=== PATIENT | female | born 1975 | race Caucasian/White ===

== ENCOUNTER 2017-12-11 20:32 | Emergency (ER) | payer OTHER ==
[~2017-12-11] VITALS: Ht 165.1 cm; Wt 100.0 kg
[~2017-12-11 20:32] MED LIST: ADDE30TA PO; ALPR-138 PO; KLON2TAB PO; TRAZ300T2 PO
--- NOTE | 2017-12-11 21:16 | PD ---
HPI Chief Complaint: Bruce act Time Seen by Provider: 21:00 Travel History International Travel<30 days: No Contact w/Intl Traveler<30days: No Traveled to known affect area: No History of Present Illness HPI 41-year-old white female presents to emergency department under Bruce act by PD. The patient states that she had gotten upset with her earlier today. She states that her cat had eloped from the house. Her came home from work to help her find a With a were unsuccessful. The patient got into an argument with her this evening. She had been drinking wine. She states that her does not like to get into conflict so he went and took her cell phone and will locked himself in the bedroom. The patient tried to get his attention by stating that she was suicidal and had taken Unisom tablets and thrown on the floor. She had gone to the neighbor's house and called 911. Please responded to the home and placed her under Bruce act. She states that she is not truly suicidal. She was merely trying to get her 's attention. She states if anything she is more homicidal. She denies any action of self-harm. She denies any true homicidal ideation. She denies any recent illness. Denies . Denies drugs. PFSH Past Medical History Narrative Medical ADD, anxiety, depression, hypercholesterolemia Depression: Yes Diabetes: No Diminished Hearing: No Tetanus Vaccination: < 5 Years ?: Not : 1 Para: 1 Past Surgical History Appendectomy: Yes Section: Yes Gynecologic Surgery: Yes () Social History Alcohol Use: Yes (Regular Vodka) Tobacco Use: No Substance Use: No Allergies-Medications (Allergen,Severity, Reaction): Coded Allergies: No Known Allergies (Verified , 01/30/14) Reported Meds & Prescriptions Reported Meds & Active Scripts Active Reported Trazodone (Trazodone HCl) 300 Mg Tab 300 Mg PO HS Klonopin (Clonazepam) 2 Mg Tab 4 Mg PO HS Adderall (Amphetamine-Dextroamphetamine) 30 Mg Tab 60 Mg PO DAILY Avoid late evening doses. Space doses at least 4 to 6 hours if more than once/day dosing. Xanax (Alprazolam) 1 Mg Tab 1 Mg PO Q8H PRN Review of Systems General / Constitutional: No: Fever Eyes: No: Visual changes HENT: No: Headaches Cardiovascular: No: Chest Pain or Discomfort Respiratory: No: Shortness of Breath Gastrointestinal: No: Abdominal Pain Genitourinary: No: Dysuria Musculoskeletal: No: Pain Skin: No Rash Neurologic: No: Weakness Psychiatric: Positive: Anxiety, Depression, Suicidal Ideations, Mood Disorder, Homicidal Ideation, No: Disorder of Thought, Substance Abuse Endocrine: No: Polydipsia Hematologic/Lymphatic: No: Easy Bruising Physical Exam Narrative GENERAL: Well-nourished, well-developed patient. Patient is alert and talkative. She does not appear to be somnolent. She does appear somewhat intoxicated. SKIN: Warm and dry. HEAD: Normocephalic and atraumatic. EYES: No scleral icterus. No injection or drainage. ENT: No nasal drainage noted. Mucous membranes pink. Airway patent. NECK: Supple, trachea midline. Moves head freely without obvious discomfort. CARDIOVASCULAR: Regular rate and rhythm without murmurs, gallops, or rubs. RESPIRATORY: Breath sounds equal bilaterally. No accessory muscle use. GASTROINTESTINAL: Abdomen soft, non-tender, nondistended. EXTREMITIES: No cyanosis or edema. BACK: Nontender without obvious deformity. No CVA tenderness. NEURO: Patient is alert and oriented. no sensorimotor deficits. Nonfocal. Normal speech. PSYCH: No delusions. No auditory or visual hallucinations. Data Data Last Documented VS Vital Signs Date Time Temp Pulse Resp B/P (MAP) Pulse Ox O2 Delivery O2 Flow Rate FiO2 12/11/17 21:21 98.9 110 16 133/86 (102) 98 Orders Orders Complete Blood Count With Diff (12/11/17 21:02) Comprehensive Metabolic Panel (12/11/17 21:02) Thyroid Stimulating Hormone (12/11/17 21:02) Electrocardiogram (12/11/17 21:02) Oximetry (12/11/17 21:02) Iv Access Insert/Monitor (12/11/17 21:) Ecg Monitoring (12/11/17 21:02) Psych Screen (12/11/17 21:02) Drug Screen, Random Urine (12/11/17 21:02) Alcohol (Ethanol) (12/11/17 21:02) Salicylates (Aspirin) (12/11/17 21:02) Tylenol (Acetaminophen) (12/11/17 21:02) Labs Laboratory Tests Test 12/11/17 21:30 White Blood Count 7.3 TH/MM3 Red Blood Count 5.54 MIL/MM3 Hemoglobin 16.8 GM/DL Hematocrit 48.1 % Mean Corpuscular Volume 86.9 FL Mean Corpuscular Hemoglobin 30.4 PG Mean Corpuscular Hemoglobin Concent 35.0 % Red Cell Distribution Width 13.4 % Platelet Count 330 TH/MM3 Mean Platelet Volume 7.5 FL Neutrophils (%) (Auto) 45.6 % Lymphocytes (%) (Auto) 42.5 % Monocytes (%) (Auto) 9.0 % Eosinophils (%) (Auto) 2.2 % Basophils (%) (Auto) 0.7 % Neutrophils # (Auto) 3.3 TH/MM3 Lymphocytes # (Auto) 3.1 TH/MM3 Monocytes # (Auto) 0.7 TH/MM3 Eosinophils # (Auto) 0.2 TH/MM3 Basophils # (Auto) 0.0 TH/MM3 CBC Comment DIFF FINAL Differential Comment Blood Urea Nitrogen 7 MG/DL Creatinine 0.93 MG/DL Random Glucose 106 MG/DL Total Protein 8.4 GM/DL Albumin 4.1 GM/DL Calcium Level 8.5 MG/DL Alkaline Phosphatase 54 U/L Aspartate Amino Transf (AST/SGOT) 26 U/L Alanine Aminotransferase (ALT/SGPT) 51 U/L Total Bilirubin 0.3 MG/DL Sodium Level 141 MEQ/L Potassium Level 4.1 MEQ/L Chloride Level 108 MEQ/L Carbon Dioxide Level 23.5 MEQ/L Anion Gap 10 MEQ/L Estimat Glomerular Filtration Rate 67 ML/MIN Thyroid Stimulating Hormone 3rd Gen 2.340 uIU/ML Salicylates Level 1.9 MG/DL Acetaminophen Level LESS THAN 2.0 MCG/ML Ethyl Alcohol Level 246 MG/DL MDM Medical Decision Making Medical Screen Exam Complete: Yes Emergency Medical Condition: Yes Medical Record Reviewed: Yes Interpretation(s) Laboratory Tests Test 12/11/17 21:30 White Blood Count 7.3 TH/MM3 Red Blood Count 5.54 MIL/MM3 Hemoglobin 16.8 GM/DL Hematocrit 48.1 % Mean Corpuscular Volume 86.9 FL Mean Corpuscular Hemoglobin 30.4 PG Mean Corpuscular Hemoglobin Concent 35.0 % Red Cell Distribution Width 13.4 % Platelet Count 330 TH/MM3 Mean Platelet Volume 7.5 FL Neutrophils (%) (Auto) 45.6 % Lymphocytes (%) (Auto) 42.5 % Monocytes (%) (Auto) 9.0 % Eosinophils (%) (Auto) 2.2 % Basophils (%) (Auto) 0.7 % Neutrophils # (Auto) 3.3 TH/MM3 Lymphocytes # (Auto) 3.1 TH/MM3 Monocytes # (Auto) 0.7 TH/MM3 Eosinophils # (Auto) 0.2 TH/MM3 Basophils # (Auto) 0.0 TH/MM3 CBC Comment DIFF FINAL Differential Comment Blood Urea Nitrogen 7 MG/DL Creatinine 0.93 MG/DL Random Glucose 106 MG/DL Total Protein 8.4 GM/DL Albumin 4.1 GM/DL Calcium Level 8.5 MG/DL Alkaline Phosphatase 54 U/L Aspartate Amino Transf (AST/SGOT) 26 U/L Alanine Aminotransferase (ALT/SGPT) 51 U/L Total Bilirubin 0.3 MG/DL Sodium Level 141 MEQ/L Potassium Level 4.1 MEQ/L Chloride Level 108 MEQ/L Carbon Dioxide Level 23.5 MEQ/L Anion Gap 10 MEQ/L Estimat Glomerular Filtration Rate 67 ML/MIN Thyroid Stimulating Hormone 3rd Gen 2.340 uIU/ML Salicylates Level 1.9 MG/DL Acetaminophen Level LESS THAN 2.0 MCG/ML Ethyl Alcohol Level 246 MG/DL Differential Diagnosis MDM: High Differential diagnoses: Schizophrenia, schizoaffective disorder, bipolar, anxiety, depression, adjustment reaction, mood disorder NOS, ODD, depressive disorder NOS, dementia, dementia with agitation, psychosis NOS, substance induced mood disorder, DMDD, Asperger syndrome, infection,electrolyte abnormality, malingering. Narrative Course Mental health screening discussed with the patient. Psychiatric screen ordered. The patient has been medically cleared. This is medical clearance for psychiatric admission Diagnosis Primary Impression: Medical clearance for psychiatric admission Additional Impression: alcohol intoxication Condition: Stable James Beltran Dec 11, 2017 21:15
[2017-12-11 21:21] VITALS: BP 133/86; PULSE 110; RESP 16; TEMP 98.9; O2SAT 98
[2017-12-11 21:39] LABS: AUTOMATED NEUTROPHIL # 3.3 TH/MM3 (1.8-7.7); BASOPHIL % 0.7 % (0.0-2.0); EOSINOPHIL # 0.2 TH/MM3 (0-0.4); EOSINOPHIL % 2.2 % (0.0-4.0); HEMATOCRIT 48.1 % (35.0-46.0); HEMOGLOBIN 16.8 GM/DL (11.6-15.3); LYMPH % 42.5 % (9.0-44.0); LYMPHOCYTE # 3.1 TH/MM3 (1.0-4.8); MEAN CELL VOLUME 86.9 FL (80.0-100.0); MEAN CORPUSCULAR HEMOGLOBIN 30.4 PG (27.0-34.0); MEAN PLATELET VOLUME 7.5 FL (7.0-11.0); MONOCYTE # 0.7 TH/MM3 (0-0.9); NEUT % 45.6 % (16.0-70.0); PLATELET COUNT 330 TH/MM3 (150-450); RED BLOOD COUNT 5.54 MIL/MM3 (4.00-5.30); RED CELL DISTRIBUTION WIDTH 13.4 % (11.6-17.2); WHITE BLOOD COUNT 7.3 TH/MM3 (4.0-11.0)
[2017-12-11] MEDS ORDERED: TRAZ300T2 PO (21:40)
[2017-12-11] MEDS ORDERED: XANA1TAB2 PO (21:40)
[2017-12-11] MEDS ORDERED: KLON2TAB PO (21:40)
[2017-12-11] MEDS ORDERED: ADDE30TA PO (21:40)
[2017-12-11 21:59] LABS: ALBUMIN 4.1 GM/DL (3.4-5.0); AST (GOT) 26 U/L (15-37); BICARBONATE 23.5 MEQ/L (21.0-32.0); BLOOD UREA NITROGEN 7 MG/DL (7-18); CALCIUM 8.5 MG/DL (8.5-10.1); CHLORIDE 108 MEQ/L (98-107); CREATININE 0.93 MG/DL (0.50-1.00); GLOMERULAR FILTRATION RATE 67 ML/MIN (>89); GLUCOSE,RANDOM 106 MG/DL (74-106); SODIUM (NA) 141 MEQ/L (136-145)
[2017-12-11 22:11] LABS: ALKALINE PHOSPHATASE 54 U/L (45-117); ALT (GPT) 51 U/L (10-53); TOTAL BILIRUBIN ADULT 0.3 MG/DL (0.2-1.0); TOTAL PROTEIN 8.4 GM/DL (6.4-8.2)
[2017-12-11 22:20] LABS: ACETAMINOPHEN LESS THAN 2.0 MCG/ML (10.0-30.0)
[2017-12-12] VITALS (7 sets, daily range): BP systolic 97–147; BP diastolic 62–89; PULSE 66–113; RESP 17–20; TEMP 97.6–98.2; O2SAT 96–100
[2017-12-12] MEDS ORDERED: ACETAMINOPHEN 500 MG CPLT PO ONE (04:30)
[2017-12-12] MEDS ORDERED: ONDANSETRON ODT 4 MG TAB PO ONE (13:15)
[2017-12-12] MEDS ORDERED: LOPERAMIDE HCL 2 MG CAP PO ONE (17:45)
[2017-12-12] MEDS ORDERED: traZODone HCL 100 MG TAB PO ONE (20:45)
--- NOTE | 2017-12-12 21:32 | EKG ---
Date Performed: 12/11/2017 Time Performed: 21:37:23 PTAGE: 41 years EKG: Sinus rhythm NORMAL ECG PREVIOUS TRACING : 12/11/2009 15.53 Since the prior tracing, there has been no significant [place] DOCTOR: Chadd Galvan Interpretating Date/Time 12/12/2017 21:30:54
[2017-12-13 06:15] VITALS: BP 116/68; PULSE 77; RESP 18; TEMP 96.1; O2SAT 96
--- NOTE | 2017-12-13 09:25 | PD ---
Physical Exam Time Seen by Provider: 09:[address] Owen has evaluated patient, lifted Bruce act and cleared patient for discharge. The patient's family is picking her up. Data Data Last Documented VS Vital Signs Date Time Temp Pulse Resp B/P (MAP) Pulse Ox O2 Delivery O2 Flow Rate FiO2 12/13/17 06:15 96.1 77 18 116/68 (84) 96 Room Air Orders Orders Complete Blood Count With Diff (12/11/17 21:02) Comprehensive Metabolic Panel (12/11/17 21:02) Thyroid Stimulating Hormone (12/11/17 21:02) Electrocardiogram (12/11/17 21:02) Oximetry (12/11/17 21:02) Iv Access Insert/Monitor (12/11/17 21:02) Ecg Monitoring (12/11/17 21:02) Psych Screen (12/11/17 21:02) Drug Screen, Random Urine (12/11/17 21:02) Alcohol (Ethanol) (12/11/17 21:02) Salicylates (Aspirin) (12/11/17 21:02) Tylenol (Acetaminophen) (12/11/17 21:02) Ed Urine Pregnancytest Poc (12/12/17 04:00) Acetaminophen (Tylenol) (12/12/17 04:30) Diet Regular Basic (12/12/17 Breakfast) Diet Regular Basic (12/12/17 Lunch) Ondansetron Odt (Zofran Odt) (12/12/17 13:15) Diet Regular Basic (12/12/17 Dinner) Loperamide (Imodium) (12/12/17 17:45) Trazodone (Desyrel) (12/12/17 20:45) Diet Regular Basic (12/13/17 Breakfast) Labs Laboratory Tests Test 12/11/17 21:30 12/12/17 04:00 White Blood Count 7.3 TH/MM3 Red Blood Count 5.54 MIL/MM3 Hemoglobin 16.8 GM/DL Hematocrit 48.1 % Mean Corpuscular Volume 86.9 FL Mean Corpuscular Hemoglobin 30.4 PG Mean Corpuscular Hemoglobin Concent 35.0 % Red Cell Distribution Width 13.4 % Platelet Count 330 TH/MM3 Mean Platelet Volume 7.5 FL Neutrophils (%) (Auto) 45.6 % Lymphocytes (%) (Auto) 42.5 % Monocytes (%) (Auto) 9.0 % Eosinophils (%) (Auto) 2.2 % Basophils (%) (Auto) 0.7 % Neutrophils # (Auto) 3.3 TH/MM3 Lymphocytes # (Auto) 3.1 TH/MM3 Monocytes # (Auto) 0.7 TH/MM3 Eosinophils # (Auto) 0.2 TH/MM3 Basophils # (Auto) 0.0 TH/MM3 CBC Comment DIFF FINAL Differential Comment Blood Urea Nitrogen 7 MG/DL Creatinine 0.93 MG/DL Random Glucose 106 MG/DL Total Protein 8.4 GM/DL Albumin 4.1 GM/DL Calcium Level 8.5 MG/DL Alkaline Phosphatase 54 U/L Aspartate Amino Transf (AST/SGOT) 26 U/L Alanine Aminotransferase (ALT/SGPT) 51 U/L Total Bilirubin 0.3 MG/DL Sodium Level 141 MEQ/L Potassium Level 4.1 MEQ/L Chloride Level 108 MEQ/L Carbon Dioxide Level 23.5 MEQ/L Anion Gap 10 MEQ/L Estimat Glomerular Filtration Rate 67 ML/MIN Thyroid Stimulating Hormone 3rd Gen 2.340 uIU/ML Salicylates Level 1.9 MG/DL Acetaminophen Level LESS THAN 2.0 MCG/ML Ethyl Alcohol Level 246 MG/DL Urine Opiates Screen NEG Urine Barbiturates Screen NEG Urine Amphetamines Screen POS Urine Benzodiazepines Screen POS Urine Cocaine Screen NEG Urine Cannabinoids Screen NEG MDM Supervised Visit with JEY: No Narrative Course Dr. Owen has evaluated patient, lifted Teo shabazz and cleared patient for discharge. The patient's family is picking her up. Patient contracts safety. Denies suicidal or homicidal ideations. Patient will be provided community resource packet to [facility] for follow-up. Has friends and family for support. Patient was medically cleared by alternate provider prior to psych screening. Patient has been evaluated by psychiatry and and is now cleared for discharge. Diagnosis Primary Impression: alcohol intoxication Referrals: [facility] (Out patient) [facility] Primary Care Physician Psychiatrist Ken [facility] Patient Instructions: General Instructions, Alcohol Intoxication (ED), Suicide Prevention for Adults (ED) Departure Forms: Tests/Procedures Additional Instruction: Contract safety to your self and others Stop drinking alcohol Follow-up with psychiatry Follow-up with primary care provider Follow-up with Osile Garland Return to the emergency department immediately with worsening of symptoms Follow up with Osiel Her. Follow up with [facility] [address] or primary care clinic. Return to ED for any worsening. Med/Other Pt SpecificInfo: No Change to Meds, No Meds Exist/No RX given Disposition: 01 DISCHARGE HOME Condition: Stable Adela Wilson Dec 13, 2017 09:25
--- NOTE | 2017-12-13 10:02 | HHI.PYPN ---
Subjective Chief Complaint: "SUCIDAL IDEATION" Remarks Patient is a 41-year-old white female presents to emergency department under Bruce act by PD. The patient states that she had gotten upset with her earlier today leading to her threatening to overdose on pills. Patient reports this all started because a cat ELOPED from the house and this led her to drinking a glass of wine. She reports she has not been drinking since the new year and has felt better without alcohol. She had been drinking wine when came home and they try to look for the cat but unsuccessfully. She states that her does not like to get into conflict so he went and took her cell phone and will locked himself in the bedroom. The patient tried to get his attention by stating that she was suicidal and had taken Unisom tablets and thrown on the floor, states she did not ingest any. She reports she went to the neighbor's house and called 911. Police responded to the home and placed her under Bruce act. She states that she is not truly suicidal. She was merely trying to get her 's attention. She denies any recent illness. Denies . Denies drugs. During the interview this morning, patient is insightful admits that when she drinks she can get belligerent. Also that she makes calls to several people and is reviewed and noxious to them leading to a lot of social issues and that was the reason why her took a cell phone away. Patient understands he has an alcohol problem and knows the consequences and repercussions to chronic alcohol use. She reports she is trying hard to stay away from the alcohol but seems to relapse often. Blood alcohol upon admission was 254. She reports she drinks anything she can get her hand on "I do not discriminate" UDS: Positive for benzodiazepines and amphetamines. [Patient is on Adderall and benzos for ADHD and anxiety respectfully] social Hx; patient lives with her of 15 years. She has a 9 year old daughter who she lost custody and is able to see her on the supervision on Saturdays. She reports that the daughter has lived with the father since . Due to patient's alcoholism. Patient does not work. psych Hx: Patient has not had any inpatient hospitalization in a psychiatric facility. However she is attended multiple rehab programs. She reports at least 8-9 of them but has not been very successful. She is able to refrain from using alcohol for a couple of months but tends to fall off the wagon. Last program was 2 years ago. She had been diagnosed with depression, and states that when her alcoholism began. Patient is currently diagnosed with anxiety and depression and is treated with Wellbutrin, Xanax, Klonopin and Adderall. She reports she sees Dr. Fernandez who prescribes the medications. MEdical Hx: none reported -currently she shows an anemic picture with low RBC and hemoglobin. Low GFR-could be due to dehydration Review of Systems Except as stated in HPI: all other systems reviewed are Neg Mental Status Examination Appearance: Appropriate Consciousness: Alert Orientation: x4 Motor Activity: Normal gait Speech: Unremarkable Language: Adequate Fund of Knowledge: Adequate Attention and Concentration: Adequate Memory: Unremarkable Mood: Appropriate Affect: Appropriate Thought Process & Associations: Intact Thought Content: Appropriate Hallucination Type: None Delusion Type: None Suicidal Ideation: No Suicidal Plan: No Suicidal Intention: No Homicidal Ideation: No Homicidal Plan: No Homicidal Intention: No Insight: Adequate Judgment: Adequate Results Labs Laboratory Tests Test 12/11/17 21:30 12/12/17 04:00 Red Blood Count 5.54 MIL/MM3 (4.00-5.30) Hemoglobin 16.8 GM/DL (11.6-15.3) Hematocrit 48.1 % (35.0-46.0) Monocytes (%) (Auto) 9.0 % (0.0-8.0) Total Protein 8.4 GM/DL (6.4-8.2) Chloride Level 108 MEQ/L (98-107) Estimat Glomerular Filtration Rate 67 ML/MIN (>89) Salicylates Level 1.9 MG/DL (2.8-20.0) Acetaminophen Level LESS THAN 2.0 MCG/ML Ethyl Alcohol Level 246 MG/DL (0-5) Urine Amphetamines Screen POS (NEG) Urine Benzodiazepines Screen POS (NEG) Vitals/IOs Vital Signs Date Time Temp Pulse Resp B/P (MAP) Pulse Ox O2 Delivery O2 Flow Rate FiO2 12/13/17 06:15 96.1 77 18 116/68 (84) 96 Room Air Assessment & Plan Problem List: (1) Substance induced mood disorder ICD Codes: F19.94 - Other psychoactive substance use, unspecified with psychoactive substance-induced mood disorder (2) Alcohol dependence with acute alcoholic intoxication ICD Codes: F10.229 - Alcohol dependence with intoxication, unspecified (3) Depressive disorder ICD Codes: F32.9 - Major depressive disorder, single episode, unspecified Status: Chronic Assessment & Plan Estimated LOS: 0days Plan: Patient will be discharged home. is willing to come pick patient up. Recommended follow-up with rehab again. Patient shows anemic picture-recommended -rule out iron deficiency. Follow-up with primary care physician Recommended using folic acid and B12 on a daily basis. Justification for Cont. Inpt. n/a Sabi Owen MD Dec 13, 2017 10:02
== END 2017-12-13 09:40 | disposition home or self-care (01) ==
LOC: NEPD 20:32 → NEPJ 12-13 09:40
DX: F10.129 Alcohol abuse with intoxication, unspecified (principal); F15.90 Other stimulant use, unspecified, uncomplicated; F19.90 Other psychoactive substance use, unspecified, uncomplicated; E78.00 Pure hypercholesterolemia, unspecified; F32.9 Major depressive disorder, single episode, unspecified; F41.9 Anxiety disorder, unspecified; Y90.8 Blood alcohol level of 240 mg/100 ml or more
CPT/HCPCS: 80053; 80307; 84443; 84703; 85025; 93005; 99284